=== PATIENT | male | born 1970 | race Caucasian/White ===

== ENCOUNTER 2016-06-25 00:28 | Emergency (ER) | payer OTHER, BC ==
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
[2016-06-25 05:02] VITALS: BP 128/82
== END 2016-06-25 05:03 | disposition home or self-care (01) ==
LOC: ER 00:28
DX: S83.92XA Sprain of unspecified site of left knee, initial encounter (principal); X58.XXXA Exposure to other specified factors, initial encounter; Y92.331 Roller skating rink as the place of occurrence of the external cause; Y99.0 Civilian activity done for income or pay; Z87.442 Personal history of urinary calculi; Z88.0 Allergy status to penicillin
CPT/HCPCS: 99283; 73562; L1830

== ENCOUNTER 2017-07-23 21:11 | Emergency (ER) | payer BC, OTHER ==
[2017-07-23] MEDS ORDERED: NORMAL SALINE 1000 ML 1,000 ML IV ONE (21:31)
[2017-07-23] MEDS ORDERED: KETOROLAC TROMETHAMINE INJ/PF 30 MG/1 ML SDV IV ONE (21:31)
--- NOTE | 2017-07-23 21:31 | ER Document Report ---
ED General - General Chief Complaint: Flank Pain Stated Complaint: LEFT FLANK PAIN Time Seen by Provider: 07/23/17 21:30 Mode of Arrival: Ambulatory Information source: Patient Notes: 46-year-old male presents with complaints of left flank pain intermittently since yesterday. Patient went to the urgent care this morning had a CT renal stone study performed and has the images with him, he was given pain medication and was told the results would be given to him in a few days. Patient notes his symptoms worsen over the past hour Patient notes he has had 15-30 stones in the past TRAVEL OUTSIDE OF THE [place] IN LAST 30 DAYS: No - HPI Onset: Just prior to arrival Onset/Duration: Sudden Quality of pain: Sharp Severity: Severe Pain Level: 5 Associated symptoms: Nausea Exacerbated by: Denies Relieved by: Denies Similar symptoms previously: Yes Recently seen / treated by doctor: Yes - Related Data Allergies/Adverse Reactions: amoxicillin trihydrate [From Augmentin] Allergy (Verified 07/23/17 21:12) Potassium Clavulanate * [From Augmentin] Allergy (Verified 07/23/17 21:12) Past Medical History - Social History Smoking Status: Never Smoker Cigarette use (# per day): No Chew tobacco use (# tins/day): No Smoking Education Provided: No Family History: Reviewed & Not Pertinent Neurological Medical History: Reports: Hx Migraine Renal/ Medical History: Reports: Hx Kidney Stones. Denies: Hx Peritoneal Dialysis GI Medical History: Reports: Hx Gastroesophageal Reflux Disease, Hx Irritable Bowel Past Surgical History: Reports: Hx Orthopedic Surgery - shoulder, Hx Tonsillectomy - Immunizations Hx Diphtheria, Pertussis, Tetanus Vaccination: Yes Review of Systems - Review of Systems Notes: REVIEW OF SYSTEMS: CONSTITUTIONAL : Denies fever, chills, or sweats. Denies recent illness. EENT: Denies eye, ear, throat, or mouth pain or symptoms. Denies nasal or sinus congestion or discharge. Denies throat, tongue, or mouth swelling or difficulty swallowing. CARDIOVASCULAR: Denies chest pain. Denies palpitations or racing or irregular heart beat. Denies ankle edema. RESPIRATORY: Denies cough, cold, or chest congestion. Denies shortness of breath, difficulty breathing, or wheezing. GASTROINTESTINAL: Admits to flank pain GENITOURINARY: Admits difficulty urinating MUSCULOSKELETAL: Denies back or neck pain or stiffness. Denies joint pain or swelling. SKIN: Denies rash, lesions or sores. HEMATOLOGIC : Denies easy bruising or bleeding. LYMPHATIC: Denies swollen, enlarged glands. NEUROLOGICAL: Denies confusion or altered mental status. Denies passing out or loss of consciousness. Denies dizziness or lightheadedness. Denies headache. Denies weakness or paralysis or loss of use of either side. Denies problems with gait or speech. Denies sensory loss, numbness, or tingling. Denies seizures. PSYCHIATRIC: Denies anxiety or stress. Denies depression, suicidal ideation, or homicidal ideation. ALL OTHER SYSTEMS REVIEWED AND NEGATIVE. Dictation was performed using [employer] voice recognition software PHYSICAL EXAMINATION: GENERAL: Well-appearing, well-nourished and in significant acute distress. Patient is pacing around the room HEAD: Atraumatic, normocephalic. EYES: Pupils equal round and reactive to light, extraocular movements intact, sclera anicteric, conjunctiva are normal. ENT: Nares patent, oropharynx clear without exudates. Moist mucous membranes. NECK: Normal range of motion, supple without lymphadenopathy LUNGS: Breath sounds clear to auscultation bilaterally and equal. No wheezes rales or rhonchi. HEART: Regular rate and rhythm without murmurs ABDOMEN: Soft, nontender, nondistended abdomen. No guarding, no rebound. No masses appreciated. Left CVA tenderness Musculoskeletal: Normal range of motion, no pitting or edema. No cyanosis. NEUROLOGICAL: Cranial nerves grossly intact. Normal speech, normal gait. Normal sensory, motor exams PSYCH: Normal mood, normal affect. SKIN: Warm, Dry, normal turgor, no rashes or lesions noted. Physical Exam - Vital signs Vitals: Temp Pulse Resp BP Pulse Ox 97.9 F 83 20 150/100 H 97 07/23/17 21:15 07/23/17 21:15 07/23/17 21:15 07/23/17 21:15 07/23/17 21:15 Course - Re-evaluation Re-evalutation: 07/23/17 21:36 Patient's presentation is most consistent with a kidney stone, I am attempting to open the CD but have so far been unsuccessful 07/23/17 22:51 Patient's urinalysis is consistent with calcium oxalate stones there is no sign of infection there is blood noted, given that I cannot see the imaging I do not feel it is appropriate to repeat imaging, patient's kidney function is normal he looks well is comfortable now I will discharge home with pain nausea control and follow-up with his urologist Dr. Bartlett at [facility] 07/23/17 22:52 After performing a Medical Screening Examination, I estimate there is LOW risk for ACUTE APPENDICITIS, BOWEL OBSTRUCTION, ACUTE CHOLECYSTITIS, PERFORATED DIVERTICULITIS, INCARCERATED HERNIA, PANCREATITIS, TESTICULAR TORSION or PERFORATED ULCER, thus I consider the discharge disposition reasonable. Also, there is no evidence or peritonitis, sepsis, or toxicity. I have reevaluated this patient multiple times and no significant life threatening changes are noted. The patient and I have discussed the diagnosis and risks, and we agree with discharging home with close follow-up with the understanding that symptoms and presentations can change. We also discussed returning to the Emergency Department immediately if new or worsening symptoms occur. We have discussed the symptoms which are most concerning (e.g., bloody stool, fever, changing or worsening pain, intractable vomiting - standard verbal up date) that necessitate immediate return. - Vital Signs Vital signs: Temp Pulse Resp BP Pulse Ox 97.9 F 83 20 150/100 H 97 07/23/17 21:15 07/23/17 21:15 07/23/17 21:15 07/23/17 21:15 07/23/17 21:15 - Laboratory Result Diagrams: 07/23/17 21:46 07/23/17 21:46 Laboratory results interpreted by me: 07/23/17 07/23/17 07/23/17 21:46 21:46 22:15 MCHC 36.1 H Sodium 146.1 H Chloride 111 H Urine Protein 100 H Urine Blood LARGE H Discharge - Discharge Clinical Impression: Kidney stone Condition: Stable Disposition: HOME, SELF-CARE Instructions: Kidney Stone ([facility]) Additional Instructions: Follow up with your physician tomorrow for further care or return to the ED IMMEDIATELY if symptoms worsen or new concerns occur. If you cannot afford to follow up with your primary care physician a list of low cost clinics have been provided at the end of your discharge papers as well. Prescriptions: Oxycodone HCl/Acetaminophen [Percocet 5-325 mg Tablet] 1 - 2 tab PO Q4H PRN #25 tablet PRN Reason: Promethazine HCl [Phenergan 25 mg Tablet] 1 - 2 tab PO Q6H PRN #15 tablet PRN Reason: Tamsulosin HCl [Flomax 0.4 mg Cap.sr] 0.4 mg PO DAILY #7 cap.sr.24h Referrals: SANDIP JONES MD [Primary Care Provider] - Follow up as needed
[2017-07-23] MEDS ORDERED: HYDROMORPHONE HCL INJ/PF 2 MG/ML AMPULE IV ONE ×2 (21:34→22:21)
[2017-07-23 22:10] LABS: ABSOLUTE BASOPHILS # (AUTO) 0.1 10^3/uL (0.0-0.2); ABSOLUTE EOSINOPHILS # (AUTO) 0.1 10^3/uL (0.0-0.6); ABSOLUTE LYMPHOCYTES (AUTO) 3.7 10^3/uL (0.5-4.7); ABSOLUTE MONOCYTES (AUTO) 0.8 10^3/uL (0.1-1.4); ABSOLUTE NEUT (AUTO) 4.7 10^3/uL (1.7-8.2); BASOPHILS % (AUTO) 0.6 % (0-2); EOSINOPHILS % (AUTO) 0.7 % (0-6); HEMATOCRIT 47.1 % (37.9-51.0); LYMPHOCYTES % (AUTO) 39.2 % (13-45); MEAN CORPUSCULAR HEMOGLOBIN 30.9 pg (27.0-33.4); MEAN CORPUSCULAR HGB CONC 36.1 g/dL (32.0-36.0); MEAN CORPUSCULAR VOLUME 86 fl (80-97); MONOCYTES % (AUTO) 9.1 % (3-13); PLATELET COUNT 267 10^3/uL (150-450); RED CELL DISTRIBUTION WIDTH 12.8 % (11.5-14.0); SEGMENTED NEUTROPHILS % (AUTO) 50.4 % (42-78); TOTAL CELLS COUNTED % (AUTO) 100 %; WHITE BLOOD COUNT 9.3 10^3/uL (4.0-10.5)
[2017-07-23] MEDS ORDERED: TAMSULOSIN HCL 0.4 MG CAP.SR.24H PO ONE (22:21)
[2017-07-23 22:26] LABS: ALANINE AMINOTRANSFERASE 24 U/L (21-72); ALBUMIN 4.5 g/dL (3.5-5.0); ALKALINE PHOSPHATASE 84 U/L (38-126); ANION GAP 13 (5-19); ASPARTATE AMINO TRANSFERASE 20 U/L (17-59); BILIRUBIN,DIRECT 0.3 mg/dL (0.0-0.4); BILIRUBIN,TOTAL 0.7 mg/dL (0.2-1.3); BLOOD UREA NITROGEN 13 mg/dL (7-20); CALCIUM 9.8 mg/dL (8.4-10.2); CARBON DIOXIDE 22 mmol/L (22-30); CHLORIDE 111 mmol/L (98-107); GLUCOSE 105 mg/dL (75-110); POTASSIUM 4.1 mmol/L (3.6-5.0); SODIUM 146.1 mmol/L (137-145); TOTAL PROTEIN 7.4 g/dL (6.3-8.2)
[2017-07-23 22:44] LABS: APPEARANCE,URINE CLOUDY; BILIRUBIN,URINE NEGATIVE (NEGATIVE); CALCIUM OXALATE CRYSTALS,URINE FEW /HPF; COLOR,URINE AMBER; GLUCOSE, URINE NEGATIVE (NEGATIVE); KETONES,URINE NEGATIVE (NEGATIVE); LEUKOCYTE ESTERASE,URINE NEGATIVE (NEGATIVE); NITRITE,URINE NEGATIVE (NEGATIVE); PROTEIN,URINE 100 mg/dL (NEGATIVE); URINE SPECIFIC GRAVITY 1.029; UROBILINOGEN,URINE NEGATIVE mg/dL (<2.0)
[2017-07-23] MEDS ORDERED: HYDROCODONE/ACETAMINOPHEN 5-325 MG (6 TAB/ER DISP) PO PRN (23:01)
[2017-07-23] MEDS ORDERED: FENTANYL CITRATE INJ/PF 100 MCG/2 ML AMPUL IV ONE (23:15)
[2017-07-24] MEDS ORDERED: HYDROMORPHONE HCL INJ/PF 2 MG/ML AMPULE IV ONE ×2 (00:53→04:53)
[2017-07-24] MEDS ORDERED: ONDANSETRON HCL INJ/PF 4 MG/2 ML SDV IV ONE (02:45)
[2017-07-24 07:13] VITALS: BP 135/87
== END 2017-07-24 07:15 | disposition home or self-care (01) ==
LOC: ER 21:11
DX: N20.0 Calculus of kidney (principal); R10.9 Unspecified abdominal pain
CPT/HCPCS: 96376; 99284; 96361; 96374; 96375; 36415; 85025; 80053; 81001; J3010; J1885; J1170 ×2; J2405; J7030

== ENCOUNTER → 2019-04-02 | Outpatient (CLI) | payer OTHER ==
--- NOTE | 2019-04-02 13:43 | RADIOLOGY REPORT (SQ) ---
EXAM DESCRIPTION: CT ABD/PELVIS NO ORAL OR IV COMPLETED DATE/TIME: 04/02/2019 12:59 pm REASON FOR STUDY: N20.0 CALCULUS OF KIDNEY N20.0 CALCULUS OF KIDNEY COMPARISON: 05/04/2014 TECHNIQUE: CT scan of the abdomen and pelvis performed without intravenous or oral contrast. Images reviewed with lung, soft tissue, and bone windows. Reconstructed coronal and sagittal MPR images revi ewed. All images stored on PACS. All CT scanners at this facility use dose modulation, iterative reconstruction, and/or weight based d osing when appropriate to reduce radiation dose to as low as reasonably achievable (ALARA). [facility]: Dose Right [facility]: CareDose [facility]: Dose Right [facility]: Teradose 4D [facility]: [employer] RADIATION DOSE: CT Rad equipment meets quality standard of care and radiation dose reduction techniq ues were employed. CTDIvol: 7.7 mGy. DLP: 413 mGy-cm.mGy. LIMITATIONS: None. FINDINGS: LOWER CHEST: No significant findings. No nodules or infiltrates. NON-CONTRASTED LIVER, SPLEEN, ADRENALS: Hepatic cyst. No hepatic mass. Spleen is normal. The adren als are normal. PANCREAS: No masses. No peripancreatic inflammatory changes. GALLBLADDER: No identified stones by CT criteria. No inflammatory changes to suggest cholecystitis. RIGHT KIDNEY AND URETER: No suspicious masses. Assessment limited by lack of IV contrast. Nonobstru cting lower calyceal calculi. No hydronephrosis or hydroureter. LEFT KIDNEY AND URETER: No suspicious masses. Assessment limited by lack of IV contrast. Nonobstruc ting upper and lower calyceal calculi. No hydronephrosis or hydroureter. AORTA AND RETROPERITONEUM: No aneurysm. No retroperitoneal masses or adenopathy. BOWEL AND PERITONEAL CAVITY: No obvious masses or inflammatory changes. No free fluid. APPENDIX: Normal. PELVIS, BLADDER, AND ABDOMINAL WALL:No abnormal masses. No free fluid. Bladder normal. BONES: No significant findings. OTHER: No other significant finding. IMPRESSION: Nonobstructing intrarenal calculi bilaterally. No acute finding in the abdomen or pelvi s. COMMENT: Quality ID # [id number]: Final reports with documentation of one or more dose reduction techniques (e.g., Automated exposure control, adjustment of the mA and/or kV according to patient size, use of iterative reconstruction technique) TECHNICAL DOCUMENTATION: JOB ID: [id number] 2010 [employer] All Rights Reserved Reading location - IP/workstation name: [email or web address]
== END ==
LOC: RAD 12:43
PROVIDERS: ATTEND Family Medicine
DX: N20.0 Calculus of kidney (principal)
CPT/HCPCS: 74176

== ENCOUNTER 2019-07-04 00:33 | Emergency (ER) | payer BC, OTHER ==
--- NOTE | 2019-07-04 00:56 | ER Document Report ---
ED General - General Chief Complaint: ETOH Abuse Stated Complaint: ETOH Time Seen by Provider: 07/04/19 00:40 Primary Care Provider: JAYDA LOPEZ DO [Primary Care Provider] - Follow up as needed Notes: Patient is a 48-year-old male that comes to the emergency department for chief complaint of alcohol intoxication and head injury. Reportedly patient was wrestling with his family member at the house when he struck the back of his head. Daughter called EMS and patient came in by EMS. Patient admits to drinking alcohol tonight, denies recreational drugs, denies passing out, vomiting, wounds, or any other complaints. He states that he has been wrestling with family members recently and he has a few "old bruises" but denies any other complaints. Patient was able to tell me events but he was unable to tell me his current location. He denies blood thinner or any daily medications. Daughter is on the phone with patient during evaluation and did help with history. TRAVEL OUTSIDE OF THE [place] IN LAST 30 DAYS: No - Related Data Allergies/Adverse Reactions: amoxicillin trihydrate [From Augmentin] Allergy (Verified 07/23/17 21:12) Potassium Clavulanate * [From Augmentin] Allergy (Verified 07/23/17 21:12) Past Medical History - General Information source: Patient - Social History Smoking Status: Unknown if Ever Smoked Frequency of alcohol use: Social Drug Abuse: None Lives with: Family Family History: Reviewed & Not Pertinent Patient has homicidal ideation: No Neurological Medical History: Reports: Hx Migraine Renal/ Medical History: Reports: Hx Kidney Stones. Denies: Hx Peritoneal Dialysis GI Medical History: Reports: Hx Gastroesophageal Reflux Disease, Hx Irritable Bowel Past Surgical History: Reports: Hx Orthopedic Surgery - shoulder, Hx Tonsillectomy - Immunizations Hx Diphtheria, Pertussis, Tetanus Vaccination: Yes Review of Systems - Review of Systems Constitutional: No symptoms reported EENT: No symptoms reported Cardiovascular: No symptoms reported Respiratory: No symptoms reported Gastrointestinal: No symptoms reported Genitourinary: No symptoms reported Male Genitourinary: No symptoms reported Musculoskeletal: See HPI Skin: No symptoms reported Hematologic/Lymphatic: No symptoms reported Neurological/Psychological: See HPI Physical Exam - Vital signs Vitals: Temp 97.5 F 07/04/19 00:35 - Notes Notes: GENERAL: Alert and interactive, does not appear to be in distress. Smells of alcohol. HEAD: Normocephalic, atraumatic. No noted wounds. EYES: Pupils equal, round, and reactive to light. Extraocular movements intact. ENT: Oral mucosa moist, tongue midline. Oropharynx unremarkable. Airway patent. Nares patent, no epistaxis or septal hematoma noted. NECK: Full range of motion. Supple. Trachea midline. No lymphadenopathy. LUNGS: Clear to auscultation bilaterally, no wheezes, rales, or rhonchi. No respiratory distress. Non-tender chest wall. No signs of trauma. HEART: Regular rate and rhythm. No murmur ABDOMEN: Soft, non-tender. Non-distended. EXTREMITIES: Moves all 4 extremities spontaneously. Old healing bruise over the left mid tricep area without significant tenderness. No edema, normal radial and dorsalis pedis pulses bilaterally. No cyanosis. BACK: There is an old bruise along the right mid thoracic area towards the lateral aspect of the ribs. No tenderness over the area. No other signs of trauma. No cervical, thoracic, lumbar midline tenderness. No saddle anesthesia, normal distal neurovascular exam. Moves all extremities in full range of motion. NEUROLOGICAL: Alert and oriented to some events, oriented to person, not oriented to place initially. Occasional slurred speech pattern. Cranial nerves II through XII grossly intact. Strength 5/5 in all extremities. PSYCH: Very irritable, arms crossed, glaring, threatening tone and body language SKIN: Warm, dry, normal turgor. No rashes or lesions noted. Course - Re-evaluation Re-evalutation: 07/04/19 00:55 Patient initially became very agitated when I tried to evaluate him, appears intoxicated and smells of alcohol, became very angry when patient access had difficulty obtaining his name, demanded we call him "Jacob" instead of his first name. He started swearing at the staff and at me, I informed him that if he was aggressive verbally or physically towards the staff that he would be sedated and restrained. Patient did calm down, patient was then able to be coaxed into cooperating with full physical exam. Patient's daughter on the phone was very helpful in calming the patient down and in convincing him to allow us to examine him. Patient has old contusions on his right side and over his left arm but no new injury or current wounds. No other concerning findings noted. However because of reported head injury along with alcohol intoxication CT of the head and neck will be performed per protocol. 07/04/19 01:45 Patient began yelling again, this time at nursing staff. I have told the patient twice that I wanted to give him Phenergan to prevent him from vomiting and to help him in recovering with potential hangover symptoms. He is demanding to again know the medication. I told him again, he refused the medication. I explained this was fine, it was simply offered. Patient began pointing at everyone in sight and demanding their names. I did warn the patient that if he did not stop yelling at the staff, or if he started swearing at the staff again, he would be sedated/restrained. He did calm down after this. No medication was given as a result. Intial CT read by me appears normal, official read still pending. 07/04/19 02:31 I re-evaluated patient and informed patient of his negative CT results. I attempted to discuss with patient his head injury, post concussive syndrome, head injury precautions. Patient began yelling at me and approached me physically. He demanded I apologize for calling him intoxicated without drawing his blood. After this patient began yelling at the top of his lungs that I apologize for calling him intoxicated (after patient admitted he smelled of alocohol and told me personally he had been drinking). I tried to remind him that his family wanted him evaluated and called EMS, and they reported to EMS that he had been drinking. He was also initially much more obviously intoxicated with confusion and slurred speech. The alcohol did increase my level of concern for his head injury. I explained that this was why I had brought up his alcohol intoxication. I also stated that fortunately he is not slurring his speech now and he does appear clinically much more sober. He again demanded I apologize for calling him intoxicated without drawing his blood. I offered to draw his blood because he kept persisting with this. After this the patient started yelling loudly, started threateningly pointing at me and approaching me so I backed out of the room. Security came and he started yelling "fuck you" at the security officers. They entered the room to de-escalate the situation, patient was initially physically restrained for very short period because he raised his right arm as if he was going to strike the security officers and guards. Patient did not fall to the ground or sustain apparent injury. Patient did stop yelling and begin speaking inappropriate tones again. Patient was given his discharge papers and he signed out, patient is getting a ride home. Patient ambulated without difficulty. - Vital Signs Vital signs: Temp Pulse Resp BP Pulse Ox 97.5 F 07/04/19 00:35 Discharge - Discharge Clinical Impression: Alcohol intoxication Qualifiers: Complication of substance-induced condition: with unspecified complication Qualified Code(s): F10.929 - Alcohol use, unspecified with intoxication, unspecified Head injury Qualifiers: Encounter type: initial encounter Qualified Code(s): S09.90XA - Unspecified injury of head, initial encounter Condition: Stable Disposition: HOME, SELF-CARE Additional Instructions: The imaging of your head/brain/neck did not show any concerning findings. Avoid drinking alcohol to intoxication. You may experience symptoms from a concussion, see postconcussion syndrome listed below. Please follow head injury precautions listed below as well. Return for any concerning symptoms. Head Injury Precautions At this point, there is no evidence that your head injury is serious. Observation is necessary, however. If no pain medication was prescribed, you may take acetaminophen according to the directions on the bottle. Limit activity for the first 24 hours. During the first 24 hours, check to see approximately every two to three hours that the patient is easily arousable, responds normally, and can perform common tasks such as walking without difficulty. Contact your doctor or go to the hospital if any of the following things occur: Persistent vomiting, difficulty in arousing the patient, worsening or continued headache, or failure to improve as expected. Head injuries can cause symptoms that persist for a few days or even a few weeks. Post-Concussion Syndrome Post-concussion syndrome often follows a mild head injury. Dizziness, mild nausea, mild headache, trouble concentrating, and a general sense of "not being right" may persist for a week or two. This is a frequent complication of concussion. However, if the symptoms worsen, or new symptoms develop, you should be re-examined by the physician. There is no specific cure for post-concussion syndrome. You can take mild pain medication such as ibuprofen or acetaminophen. While you should not drive if you are dizzy, you can get back to your regular activities as quickly as the symptoms will allow. And while vigorous exercise may worsen the headache, mild physical activity often is helpful. Sitting and thinking about your symptoms will worsen them. If difficulties continue, you may need referral for special therapy to help you regain full mental function. Call the physician if you are worsening, or if symptoms are still present in one week. Report any new symptoms immediately. Forms: Return to Work Referrals: JAYDA LOPEZ, [Primary Care Provider] - Follow up as needed
[2019-07-04] MEDS: PROMETHAZINE HCL INJ 25 MG/1 ML VIAL IM ONE ×2 (01:28→01:30)
--- NOTE | 2019-07-04 01:40 | RADIOLOGY REPORT (SQ) ---
CLINICAL HISTORY: ETOH, head injury COMPARISON: None. TECHNIQUE: CT HEAD WITHOUT IV CONTRAST on 07/04/2019 12:50 AM CDT This exam was performed according to our departmental dose-optimization program, which includes automated exposure control, adjustment of the mA and/or kV according to patient size and/or use of iterative reconstruction technique. FINDINGS: There is no acute hemorrhage, mass effect or midline shift. Villatoro-white differentiation is preserved. There is no hydrocephalus. There is no significant volume loss for age. The calvarium is intact. Orbits and globes are unremarkable. The paranasal sinuses are clear. Mastoid air cells are clear. IMPRESSION: No acute intracranial findings.
--- NOTE | 2019-07-04 01:40 | RADIOLOGY REPORT (SQ) ---
CLINICAL HISTORY: ETOH, head injury COMPARISON: None. TECHNIQUE: CT CERVICAL SPINE WITHOUT IV CONTRAST on 07/04/2019 12:50 AM CDT This exam was performed according to our departmental dose-optimization program, which includes automated exposure control, adjustment of the mA and/or kV according to patient size and/or use of iterative reconstruction technique. FINDINGS: There is no acute fracture. Alignment is anatomic. There is moderate narrowing of the C6-7 disc. Vertebral body heights are preserved. Soft tissues are unremarkable. IMPRESSION: No acute fracture or subluxation.
== END 2019-07-04 02:55 | disposition home or self-care (01) ==
LOC: ER 00:33
DX: S09.90XA Unspecified injury of head, initial encounter (principal); F10.929 Alcohol use, unspecified with intoxication, unspecified; X58.XXXA Exposure to other specified factors, initial encounter; Y92.009 Unspecified place in unspecified non-institutional (private) residence as the place of occurrence of the external cause; Z88.0 Allergy status to penicillin; Z87.442 Personal history of urinary calculi
CPT/HCPCS: 70450; 72125; 99284; J2550

== ENCOUNTER 2019-07-16 15:30 | Emergency (ER) | payer OTHER, BC ==
[2019-07-16] MEDS ORDERED: KETOROLAC TROMETHAMINE INJ/PF 30 MG/1 ML SDV IM ONE (15:43)
[2019-07-16] MEDS ORDERED: TAMSULOSIN HCL 0.4 MG CAP.SR.24H PO ONE (15:43)
--- NOTE | 2019-07-16 15:46 | ER Document Report ---
ED Medical Screen (RME) - General Chief Complaint: Flank Pain Stated Complaint: FLANK PAIN Time Seen by Provider: 07/16/19 15:42 Primary Care Provider: JAYDA LOPEZ DO [Primary Care Provider] - Follow up as needed Mode of Arrival: Ambulatory Information source: Patient Notes: 48-year-old male presented to ED for right flank pain. He states he has a long history of kidney stones. He states he took 2-1/2 mg of Dilaudid an hour ago. I have ordered him Toradol and Flomax in the triage area I have also ordered an blood in urine and a CT abdomen pelvis for his flank pain. I have greeted and performed a rapid initial assessment of this patient. A comprehensive ED assessment and evaluation of the patient, analysis of test results and completion of medical decision making process will be conducted by an additional ED providers. TRAVEL OUTSIDE OF THE [place] IN LAST 30 DAYS: No - Related Data Allergies/Adverse Reactions: amoxicillin trihydrate [From Augmentin] Allergy (Verified 07/16/19 15:38) Potassium Clavulanate * [From Augmentin] Allergy (Verified 07/16/19 15:38) Home Medications: denies Past Medical History - Social History Chew tobacco use (# tins/day): No Frequency of alcohol use: Social Drug Abuse: None Neurological Medical History: Reports: Hx Migraine Renal/ Medical History: Reports: Hx Kidney Stones. Denies: Hx Peritoneal Dialysis GI Medical History: Reports: Hx Gastroesophageal Reflux Disease, Hx Irritable Bowel Past Surgical History: Reports: Hx Orthopedic Surgery - shoulder, Hx Tonsillectomy - Immunizations Hx Diphtheria, Pertussis, Tetanus Vaccination: Yes Physical Exam - Vital signs Vitals: Temp Pulse Resp BP Pulse Ox 97.9 F 81 22 H 157/101 H 96 07/16/19 15:34 07/16/19 15:34 07/16/19 15:34 07/16/19 15:34 07/16/19 15:34 Course - Vital Signs Vital signs: Temp Pulse Resp BP Pulse Ox 97.9 F 81 22 H 157/101 H 96 07/16/19 15:39 07/16/19 15:34 07/16/19 15:34 07/16/19 15:34 07/16/19 15:34 Doctor's Discharge - Discharge Referrals: JAYDA LOPEZ DO [Primary Care Provider] - Follow up as needed
[2019-07-16] MEDS ORDERED: MORPHINE SULFATE 10 MG/ML INJ IV ONE (16:10)
[2019-07-16 16:17] LABS: APPEARANCE,URINE CLOUDY; BILIRUBIN,URINE NEGATIVE (NEGATIVE); CALCIUM OXALATE CRYSTALS,URINE MODERATE /HPF; COLOR,URINE AMBER; GLUCOSE, URINE NEGATIVE (NEGATIVE); KETONES,URINE NEGATIVE (NEGATIVE); LEUKOCYTE ESTERASE,URINE NEGATIVE (NEGATIVE); NITRITE,URINE NEGATIVE (NEGATIVE); PROTEIN,URINE 100 mg/dL (NEGATIVE); URINE SPECIFIC GRAVITY 1.025; UROBILINOGEN,URINE NEGATIVE mg/dL (<2.0)
--- NOTE | 2019-07-16 16:23 | RADIOLOGY REPORT (SQ) ---
EXAM DESCRIPTION: CT ABD/PELVIS NO ORAL OR IV IMAGES COMPLETED DATE/TIME: 07/16/2019 3:54 pm REASON FOR STUDY: right flank pain COMPARISON: CT of the abdomen and pelvis without contrast from 04/02/2019. TECHNIQUE: CT scan of the abdomen and pelvis performed without intravenous or oral contrast. Images reviewed with lung, soft tissue, and bone windows. Reconstructed coronal and sagittal MPR images revi ewed. All images stored on PACS. All CT scanners at this facility use dose modulation, iterative reconstruction, and/or weight based d osing when appropriate to reduce radiation dose to as low as reasonably achievable (ALARA). [facility]: Dose Right [facility]: CareDose [facility]: Dose Right [facility]: Teradose 4D [facility]: [employer] RADIATION DOSE: CT Rad equipment meets quality standard of care and radiation dose reduction techniq ues were employed. CTDIvol: 8.3 mGy. DLP: 455 mGy-cm. LIMITATIONS: None. FINDINGS: LOWER CHEST: No acute findings NON-CONTRASTED LIVER, SPLEEN, ADRENALS: Evaluation is limited due to the absence of intravenous contr ast. The hypodense lesion in hepatic dome (image 11 of series 3) is unchanged. There is no evidence of hepatic steatosis. The spleen is normal in size. There is no adrenal mass. PANCREAS: No acute abnormality of the pancreas. GALLBLADDER: No abnormality that is apparent on CT. RIGHT KIDNEY AND URETER: Evaluation is limited due to the absence of intravenous contrast. There is an 8 x 5 mm calculus in the ureteropelvic junction that is associated with moderate hydronephrosis. There is a 2 mm calculus within a lower pole calyx. LEFT KIDNEY AND URETER: Evaluation is limited due to the absence of intravenous contrast. There are several caliceal calculi that measure up to 3 mm in diameter. There is no associated hydronephrosis , hydroureter or ureterolithiasis. AORTA AND RETROPERITONEUM: No aneurysm of the abdominal aorta. No retroperitoneal knob the, hemorrha ge or mass BOWEL AND PERITONEAL CAVITY: Colonic diverticulosis without diverticulitis. There is no bowel obstru ction, bowel wall thickening or pericolonic/ perienteric inflammation. There is no mesenteric adenop athy, free intraperitoneal fluid or mesenteric/ omental inflammation. APPENDIX: Normal. PELVIS, BLADDER, AND ABDOMINAL WALL:The urinary bladder is contracted. The prostate gland is normal in size. There is no abdominal wall mass or hernia. BONES: No acute findings OTHER: No other finding. IMPRESSION: 1. 8 x 5 mm calculus in the right ureteropelvic junction that is associated with modera te hydronephrosis. 2. Additional bilateral caliceal calculi as detailed above. COMMENT: Quality ID # [id number]: Final reports with documentation of one or more dose reduction techniques (e.g., Automated exposure control, adjustment of the mA and/or kV according to patient size, use of iterative reconstruction technique) TECHNICAL DOCUMENTATION: JOB ID: [id number] 2010 [employer]- All Rights Reserved Reading location - IP/workstation name: [email or web address]-
[2019-07-16] MEDS ORDERED: KETOROLAC TROMETHAMINE INJ/PF 30 MG/1 ML SDV IV ONE (16:42)
--- NOTE | 2019-07-16 16:42 | ER Document Report ---
ED GI/ - General Chief Complaint: Flank Pain Stated Complaint: FLANK PAIN Time Seen by Provider: 07/16/19 15:42 Primary Care Provider: [facility] [Provider Group] - Follow up tomorrow JAYDA LOPEZ DO [NO LOCAL MD] - Follow up as needed Mode of Arrival: Ambulatory Notes: 48-year-old male presenting today with right-sided flank pain. Patient is walking around the exam room unable to sit down due to pain. Notes he has felt feverish, has a headache and pain radiating down to his abdomen and right testicle. Notes gross hematuria. He sees Tamy PENN with [facility] for his kidney stones. Most recent episode of kidney stones was about 3 months ago. States that the last CT scan showed no kidney stones. He did take a Dilaudid that was a 2 to 3 years old about 1 hour ago states no relief in pain at all. No nausea or vomiting. TRAVEL OUTSIDE OF THE [place] IN LAST 30 DAYS: No - Related Data Allergies/Adverse Reactions: amoxicillin trihydrate [From Augmentin] Allergy (Verified 07/16/19 15:38) Potassium Clavulanate * [From Augmentin] Allergy (Verified 07/16/19 15:38) Home Medications: denies Past Medical History - General Information source: Patient - Social History Smoking Status: Former Smoker Chew tobacco use (# tins/day): No Frequency of alcohol use: Social Drug Abuse: None Family History: Reviewed & Not Pertinent Patient has homicidal ideation: No Neurological Medical History: Reports: Hx Migraine Renal/ Medical History: Reports: Hx Kidney Stones. Denies: Hx Peritoneal Dialysis GI Medical History: Reports: Hx Gastroesophageal Reflux Disease, Hx Irritable Bowel Past Surgical History: Reports: Hx Orthopedic Surgery - shoulder, Hx Tonsillectomy - Immunizations Hx Diphtheria, Pertussis, Tetanus Vaccination: Yes Review of Systems - Review of Systems Constitutional: See HPI EENT: No symptoms reported Cardiovascular: No symptoms reported Respiratory: No symptoms reported Gastrointestinal: See HPI Genitourinary: See HPI Male Genitourinary: See HPI Musculoskeletal: No symptoms reported Skin: No symptoms reported Physical Exam - Vital signs Vitals: Temp Pulse Resp BP Pulse Ox 97.9 F 81 22 H 157/101 H 96 07/16/19 15:34 07/16/19 15:34 07/16/19 15:34 07/16/19 15:34 07/16/19 15:34 Interpretation: Hypertensive - Notes Notes: Adult General: GENERAL: Alert, interacts well. No acute distress HEAD: Normocephalic, atraumatic EYES: Pupils equal, round and reactive to light. Extraocular movements intact. ENT: Airway patent. NECK: Full range of motion. Supple. Trachea midline. LUNGS: Clear to auscultation bilaterally, no wheezes, rales, or rhonchi. No respiratory distress. Nontender chest wall. HEART: Regular rate and rhythm. No murmurs, rubs or gallops. ABDOMEN: Soft, nontender. Nondistended. Bowel sounds present in all 4 quadrant s. GENITOURINARY: Deferred EXTREMITIES: Moves all 4 extremities spontaneously. BACK: No cervical, thoracic, lumbar midline tenderness. Mild right sided CVA tenderness. Moves all extremities with full range of motion. NEUROLOGICAL: Alert and oriented x3. Normal speech. Strength 5/ 5 in all extre mities. PSYCH: Normal affect, normal mood. SKIN: Warm, dry, normal turgor. No rashes or lesions noted. Course - Re-evaluation Re-evalutation: 07/16/19 16:42 Patient with an 8mm x 5 mm stone located on the right kidney with moderate hydronephrosis. The left kidney shows small kidney stones. CBC shows mild leukocytosis at 13.7. His urinalysis also shows blood and some proteins. 07/16/19 17:38 Discussed with patient results of the CT scan. He is agreeable with going to [facility] for treatment if needed. States that after he received the Toradol injection his pain level is now tolerable. But he reports that he has continued sharp shooting pain to his right teste. Will go ahead and give more pain medication. I have contacted the transfer center and [facility]. Pending a response from the urologist. 07/16/19 18:04 Discussed patient with Liborio Coto with [facility]. He recommends at this time patient be managed outpatient with pain control and Flomax. As long as patient is able to manage his pain and tolerate fluids po do not need to transfer at this point. He recommends close outpatient follow-up. 07/16/19 18:09 Patient is resting in the bed. In no acute distress. Is able to tolerate p.o. fluids. Discussed at length with patient recommendations by urology. Patient will need to follow-up with urology tomorrow. Will discharge patient with pain medications. Patient provided strict return precautions to include pain not controlled with oral medications or worsening symptoms. Patient is and agrees to return to the ER if he develops worsening pain not controlled with oral medications. - Vital Signs Vital signs: Temp Pulse Resp BP Pulse Ox 98.4 F 92 20 140/88 H 99 07/16/19 19:15 07/16/19 19:15 07/16/19 19:15 07/16/19 19:15 07/16/19 19:15 - Laboratory Result Diagrams: 07/16/19 16:25 07/16/19 16:25 Laboratory results interpreted by me: 07/16/19 07/16/19 07/16/19 15:47 16:25 16:25 WBC 13.7 H RBC 5.68 H Hgb 17.5 H Absolute Neuts (auto) 10.2 H Carbon Dioxide 21 L Glucose 112 H Urine Protein 100 H Urine Blood LARGE H Discharge - Discharge Clinical Impression: Nephrolithiasis Condition: Stable Disposition: HOME, SELF-CARE Instructions: Kidney Stone ([facility]) Additional Instructions: You have been diagnosed with kidney stones. Recommendation by urologist at this time is to manage your pain and treat outpatient at this time. Please return to the emergency room if you can no longer manage her pain or keep fluids down. Please follow-up with your urologist tomorrow for follow-up. Prescriptions: Ketorolac Tromethamine [Toradol 10 mg Tablet] 10 mg PO Q6HP PRN #20 tablet PRN Reason: Tamsulosin HCl [Flomax 0.4 mg Cap.sr] 0.4 mg PO DAILY #7 cap.sr.24h Oxycodone HCl/Acetaminophen [Percocet 5-325 mg Tablet] 1 - 2 tab PO Q4H PRN #15 tablet PRN Reason: Referrals: JAYDA LOPEZ DO [NO LOCAL MD] - Follow up as needed [facility] [Provider Group] - Follow up tomorrow
[2019-07-16] MEDS ORDERED: NORMAL SALINE 1000 ML 1,000 ML IV ONE (16:43)
[2019-07-16 16:59] LABS: ABSOLUTE BASOPHILS # (AUTO) 0.1 10^3/uL (0.0-0.2); ABSOLUTE LYMPHOCYTES (AUTO) 2.4 10^3/uL (0.5-4.7); ABSOLUTE NEUT (AUTO) 10.2 10^3/uL (1.7-8.2); BASOPHILS % (AUTO) 0.6 % (0-2); EOSINOPHILS % (AUTO) 0.2 % (0-6); HEMATOCRIT 49.2 % (37.9-51.0); HEMOGLOBIN 17.5 g/dL (13.5-17.0); LYMPHOCYTES % (AUTO) 17.4 % (13-45); MEAN CORPUSCULAR HEMOGLOBIN 30.8 pg (27.0-33.4); MEAN CORPUSCULAR HGB CONC 35.5 g/dL (32.0-36.0); MEAN CORPUSCULAR VOLUME 87 fl (80-97); MONOCYTES % (AUTO) 7.2 % (3-13); PLATELET COUNT 313 10^3/uL (150-450); RED BLOOD COUNT 5.68 10^6/uL (4.35-5.55); RED CELL DISTRIBUTION WIDTH 12.7 % (11.5-14.0); SEGMENTED NEUTROPHILS % (AUTO) 74.6 % (42-78); TOTAL CELLS COUNTED % (AUTO) 100 %; WHITE BLOOD COUNT 13.7 10^3/uL (4.0-10.5)
[2019-07-16 17:18] LABS: ALBUMIN 4.9 g/dL (3.5-5.0); ALKALINE PHOSPHATASE 82 U/L (38-126); ANION GAP 12 (5-19); ASPARTATE AMINO TRANSFERASE 28 U/L (17-59); BLOOD UREA NITROGEN 14 mg/dL (7-20); CARBON DIOXIDE 21 mmol/L (22-30); CHLORIDE 107 mmol/L (98-107); GLUCOSE 112 mg/dL (75-110); POTASSIUM 4.5 mmol/L (3.6-5.0)
[2019-07-16] MEDS ORDERED: HYDROMORPHONE HCL INJ/PF 2 MG/ML AMPULE IV ONE ×2 (17:33→18:47)
[2019-07-16 19:16] VITALS: BP 140/88
== END 2019-07-16 19:57 | disposition home or self-care (01) ==
LOC: ER 15:30
DX: N13.2 Hydronephrosis with renal and ureteral calculous obstruction (principal); R51 Headache; R31.0 Gross hematuria; D72.829 Elevated white blood cell count, unspecified; Z88.0 Allergy status to penicillin; Z87.891 Personal history of nicotine dependence
CPT/HCPCS: 96376; 99284; 96361; 96374; 96375; 36415; 83690; 85025; 80053; 81001; 74176; J1885; J2270; J1170; J7030